=== PATIENT | female | born 1985 | race African-American/Black ===

== ENCOUNTER 2016-09-11 08:15 | Emergency (ER) ==
[2016-09-11] MEDS ORDERED: REGLAN IV ONE (09:23)
[2016-09-11] MEDS ORDERED: NS 1,000 ML IV ONE (09:23)
[2016-09-11 09:36] LABS: MANUAL DIFF NEEDED? NO
[2016-09-11 09:39] LABS: BASO% 0.3 % (0.0-0.8); EOS# 0.28 X1000 (0.0-0.7); EOS% 2.4 % (0.0-10.0); HEMATOCRIT 39.8 % (37.0-47.0); HEMOGLOBIN 13.3 g/dL (12.0-16.0); IMM GRAN# 0.02 X1000 (0.0-0.04); IMM GRAN% 0.2 % (0.0-0.5); LYMPH# 1.98 X1000 (1.2-3.4); LYMPH% 17.1 % (20.5-51.1); MCH 29.1 PG (27-31); MCHC 33.4 g/dL (33-37); MCV 87.1 FL (81-99); MONO# 0.65 X1000 (0.11-0.59); MONO% 5.6 % (1.7-9.3); MPV 10.7 FL (7.4-10.4); NEUT% 74.4 % (42.2-75.2); PLT 290 X1000 (130-400); RBC 4.57 XMIL (4.2-5.4)
[2016-09-11 09:49] LABS: URINE SOURCE CLEAN CATCH
[2016-09-11] MEDS ORDERED: ATIVAN ONE (09:49)
[2016-09-11] MEDS ORDERED: QUELICIN ONE (09:50)
[2016-09-11 09:54] LABS: AGAP 8; BUN 10 mg/dL (8-22); CALCIUM 8.7 mg/dL (8.8-10.2); CHLORIDE 100 mmol/L (98-107); COSMO 272; POTASSIUM 3.7 mmol/L (3.5-5.1); SODIUM 136 mmol/L (136-145); TCO2 28 mmol/L (25-35)
[2016-09-11 10:13] LABS: BILIRUBIN URINE NEGATIVE (NEGATIVE); BLOOD URINE 1+ (NEGATIVE); CLARITY CLEAR (CLEAR); COLOR YELLOW; GLUCOSE URINE NEGATIVE (NEGATIVE); LEUKOCYTES URINE 1+ (NEGATIVE); NITRITE URINE POSITIVE (NEGATIVE); PH URINE 6.5; UROBILINOGEN URINE 1+(1 mg/dL)
[2016-09-11 10:14] LABS: URINE CULTURE PL NEEDED? YES; URINE EPITHELIAL CELLS >10 /HPF (<10); URINE RBC <10 /HPF (<10)
--- NOTE | 2016-09-11 10:21 | PROVIDER DOCUMENTATION ---
HPI-Abdominal Pain/GI Problem - General Source: patient - History of Present Illness-ABD Nature of Presenting Problems: Reports to er with cc of n,v,d x 1 day with upper abd pain. Reports feels like its "balling up." Reports mild cough and ears feel stuffy. Denies fever,sob,cp, rectal bleeding. Abdominal Pain Onset Location: reports: RUQ, LUQ Quality of Pain: reports: aching Severity in ED: reports: mild Onset/Duration: reports: 24 hours ago Timing: reports: still present Similar Symptoms Previously?: No Recently seen or treated by another doctor?: No <Kristina Barry - Last Filed: 09/11/16 13:13> <Antonio Elkins - Last Filed: 09/11/16 13:29> - General Chief Complaint: N/V/D Stated Complaint: N/V/D Time Seen by Provider: 09/11/16 09:13 Allergies/Adverse Reactions: Patient Allergies Allergy/AdvReac Type Severity Reaction Status Date / Time No Known Allergies Allergy Verified 03/07/16 08:41 Home Medications: Home Medication List Medication Instructions Recorded Confirmed Last Taken Type Dicyclomine [Bentyl] 20 mg PO Q6H PRN #12 capsule 09/11/16 Unknown Rx Promethazine [Phenergan] 25 mg PO Q6H PRN PRN #20 tablet 09/11/16 Unknown Rx Sulfamethoxazole/Trimethoprim 1 each PO Q12HR #10 tablet 09/11/16 Unknown Rx [Bactrim Ds Tablet] Review of Systems - Adult - REVIEW OF SYSTEMS - ADULT Constitutional: denies: chills, fever, fatique Eyes: denies: discharge, blurred vision, double vision Ears, Nose, Mouth & Throat: reports: see HPI. denies: ear pain, sinus problem, throat pain Cardiovascular: denies: chest pain, irregular heart rate, orthopnea Respiratory: reports: cough. denies: shortness of breath, wheezing Gastrointestinal: reports: abdominal pain, diarrhea, nausea, vomiting. denies: difficulty swallowing, frequent heartburn, poor appetite Genitourinary: reports: no symptoms reported Musculoskeletal: reports: no symptoms reported Integumentary: reports: no symptoms reported Neurological: reports: no symptoms reported Psychiatric: reports: no symptoms reported Endocrine: reports: no symptoms reported Hematologic/Lymphatic: reports: no symptoms reported Allergic/Immunologic: reports: no symptoms reported All Other Systems: Reviewed and Negative <Lisa Barryseb - Last Filed: 09/11/16 13:13> Past History - Adult - PAST MEDICAL HISTORY-ADULT Review of Records: reports: Nursing Assessment Review, Medications Reviewed Major Childhood Illnesses: reports: denies history Cardiovascular: reports: HTN Respiratory: reports: sleep apnea - PRIOR SURGERIES/PROCEDURES Surgical/Procedure History: reports: cholecystectomy, , breast - IMMUNIZATION STATUS Childhood Immunizations: See Nurse Assessment Flu Vaccine: See Nurse Assessment - SOCIAL HISTORY Smoking: cigarettes, less than 1 pack/day Provider spent 3-5 mins advising pt. on dangers of tobacco.: Discussed manners to quit use, and f/u contacts for add'l counseling. Substance Use: alcohol <Kristina Barry - Last Filed: 09/11/16 13:13> Physical Exam-General - PHYSICAL EXAM-ADULT Initial Vital Signs Reviewed: Yes - CONSTITUTIONAL General Appearance: appears well, alert, no apparent distress, obese - EYES Eyes: PERRL/EOMI - HEAD, EARS, NOSE, MOUTH & THROAT HENMT: pharynx normal. negative: moist mucous membranes (dry) - NECK Neck: non-tender, full range of motion, supple, normal inspection - RESPIRATORY Respiratory: lungs clear, normal breath sounds, no pleuratic chest pain, no respiratory distress, no accessory muscle use - CARDIOVASCULAR Cardiovascular: regular rate, rhythm, tachycardia - GASTROINTESTINAL (ABDOMEN) Abdominal Exam: normal bowel sounds, soft, no organomegaly, no pulsatile mass, tenderness (ttp mildly epi) - MUSCULOSKELETAL Back Exam: normal inspection, no CVA tenderness, no vertebral tenderness Extremity: normal range of motion, non-tender - SKIN Integumentary: normal color, normal turgor, warm/dry - PSYCHIATRIC Psych/Mental Status: normal mood/affect, normal thought content, normal thought process, oriented x 3 <Kristina Barry - Last Filed: 09/11/16 13:13> Progress - PLAN OF CARE/RESULTS Progress/Plan/Lab Results: Orders Category Date Time Status BMP [BASIC METABOLIC PANEL] [CHEM] Stat Lab 09/11/16 09:31 Completed CBC WITH DIFF [HEME] Stat Lab 09/11/16 09:31 Completed TEST-URINE [PREG] Stat Lab 09/11/16 09:[address] W/POSS RFLX CULT [URINALYSIS] Stat Lab 09/11/16 09:48 Completed URINE CULTURE [RM] Routine Lab 09/11/16 10:14 Ordered 0.9% Sodium Chloride Inj [Ns] 1,000 ml Med 09/11/16 09:23 Active IV 999 mls/hr Lorazepam [Ativan] Med 09/11/16 09:49 Discontinued 2 mg .ROUTE .STK-MED ONE Metoclopramide [Reglan] Med 09/11/16 09:23 Discontinued 10 mg IV NOW ONE Succinylcholine [Quelicin] Med 09/11/16 09:50 Discontinued 200 mg .ROUTE .STK-MED ONE Vital Signs - 24 hr 09/11/16 08:19 Temperature 97.8 F Pulse Rate 103 H Respiratory 20 Rate Blood Pressure 194/104 O2 Sat by Pulse 99 Oximetry Laboratory Tests 09/11/16 09/11/16 09/11/16 09:31 09:31 09:48 WBC 11.61 H RBC 4.57 Hgb 13.3 Hct 39.8 MCV 87.1 MCH 29.1 MCHC 33.4 RDW Std Deviation 12.6 Plt Count 290 MPV 10.7 H Immature Gran % (Auto) 0.2 Neut % (Auto) 74.4 Lymph % (Auto) 17.1 L [place] % (Auto) 5.6 Eos % (Auto) 2.4 Baso % (Auto) 0.3 Immature Gran # (Auto) 0.02 Neut # (Auto) 8.65 H Lymph # (Auto) 1.98 Sierra # (Auto) 0.65 H Eos # (Auto) 0.28 Baso # (Auto) 0.03 Sodium 136 Potassium 3.7 Chloride 100 Carbon Dioxide 28 Anion Gap 8 BUN 10 Creatinine 0.8 Estimated GFR/1.73 m2 > 60 BUN/Creatinine Ratio 13 Glucose 110 H Calculated Osmolality 272 Calcium 8.7 L Urine Source CLEAN CATCH Urine Color YELLOW Urine Clarity CLEAR Urine pH 6.5 Ur Specific [place] 1.020 Urine Protein 3+(500 mg/dL) A Urine Ketones 1+(Small) A Urine Blood 1+ A Urine Nitrite POSITIVE A Urine Bilirubin NEGATIVE Urine Urobilinogen 1+(1 mg/dL) Urine Microscopic RBC <10 Urine WBC 1+ A Urine Microscopic WBC 10-20 A Ur Epithelial Cells >10 A Urine Bacteria 1+ Urine Glucose NEGATIVE Urine Test 09/11/16 09:48 WBC RBC Hgb Hct MCV MCH MCHC RDW Std Deviation Plt Count MPV Immature Gran % (Auto) Neut % (Auto) Lymph % (Auto) Sierra % (Auto) Eos % (Auto) Baso % (Auto) Immature Gran # (Auto) Neut # (Auto) Lymph # (Auto) Sierra # (Auto) Eos # (Auto) Baso # (Auto) Sodium Potassium Chloride Carbon Dioxide Anion Gap BUN Creatinine Estimated GFR/1.73 m2 BUN/Creatinine Ratio Glucose Calculated Osmolality Calcium Urine Source Urine Color Urine Clarity Urine pH Ur Specific [place] Urine Protein Urine Ketones Urine Blood Urine Nitrite Urine Bilirubin Urine Urobilinogen Urine Microscopic RBC Urine WBC Urine Microscopic WBC Ur Epithelial Cells Urine Bacteria Urine Glucose Urine Test NEGATIVE <Kristina Barry - Last Filed: 09/11/16 13:13> - PLAN OF CARE/RESULTS Progress/Plan/Lab Results: Urine is contaminated, but still Nitrite pos., so will tx as UTI <Antonio Elkins - Last Filed: 09/11/16 13:29> Departure - Departure Time of Disposition Order: 13:14 Certified Medical Emergency: Emergent <Kristina Barry - Last Filed: 09/11/16 13:13> - Departure Time of Disposition Order: 13:24 Certified Medical Emergency: Emergent <Antonio Elkins - Last Filed: 09/11/16 13:29> - Departure DIAGNOSIS: Nausea & vomiting Qualifiers: Vomiting type: unspecified Vomiting Intractability: unspecified Qualified Code( s): R11.2 - Nausea with vomiting, unspecified Diarrhea Qualifiers: Diarrhea type: unspecified type Qualified Code(s): R19.7 - Diarrhea, unspecified Urinary tract infection Qualifiers: Urinary tract infection type: site unspecified Hematuria presence: without hematuria Qualified Code(s): N39.0 - Urinary tract infection, site not specified Disposition: HOME 01 Condition: Stable Additional Instructions: ED Follow Up Instructions: You have been treated by a care provider in the Emergency Department. These instructions are being provided to you so you can have an understanding of how to care for yourself upon discharge. Upon discharge from the Emergency Department, you are responsible for making arrangements for follow-up care by a physician of your choice. Take all prescribed medications as directed. Return to the Emergency Department immediately for any new or worsening symptoms. You may call the Physician Referral phone number at [phone] to obtain a list of Physicians who are taking new patients. Prescriptions: Sulfamethoxazole/Trimethoprim [Bactrim Ds Tablet] 1 each PO Q12HR #10 tablet Dicyclomine [Bentyl] 20 mg PO Q6H PRN #12 capsule PRN Reason: Cramps Promethazine [Phenergan] 25 mg PO Q6H PRN PRN #20 tablet PRN Reason: Nausea And Vomiting Referrals: None,PCP [Primary Care Provider] - Instructions: Nausea and Vomiting, Urinary Tract Infection Attestation - Scribe Verification/Attestation Scribe:: Kristina Barry Acting as Scribe for:: Antonio Elkins Scribe documention review:: This chart was documented by a scribe and accurately reflects the service the provider performed and the decisions made by the provider. <Kristina Barry - Last Filed: 09/11/16 13:13> Physician Attestation - Physician Attestation I, the provider, attest to the following statement:: Antonio Elkins Physician documentation Attestation:: This documentation recorded by the scribe accurately reflects the service I personally performed and the decisions made by me. <Antonio Elkins - Last Filed: 09/11/16 13:29>
[2016-09-11 13:50] VITALS: BP 174/86
== END 2016-09-11 13:51 | disposition home or self-care (01) ==
LOC: P.ED 08:15
DX: N39.0 Urinary tract infection, site not specified (principal); R11.2 Nausea with vomiting, unspecified; R19.7 Diarrhea, unspecified; R10.13 Epigastric pain; I10 Essential (primary) hypertension; R05 Cough; R00.0 Tachycardia, unspecified; E66.9 Obesity, unspecified; F17.210 Nicotine dependence, cigarettes, uncomplicated; Z71.6 Tobacco abuse counseling
CPT/HCPCS: 80048; 81001; 81025; 85025; 87088; 96361; 96374; J0330; J2060; J2765; J7030